=== PATIENT | male | born 1940 | race Caucasian/White ===

== ENCOUNTER 2020-07-18 14:43 | Inpatient (IN) | payer MEDICARE, OTHER ==
[2020-07-18] MEDS ORDERED: oxyCODONE 5 MG Tab **OWN MED PO PRN (21:57)
[2020-07-18] MEDS: TOPIRAMATE 50 MG PO SCH (22:20)
[2020-07-18] MEDS: [UNRECOGNIZED DRUG - OTHER] PO SCH (22:21)
[2020-07-18] MEDS: Docusate Sodium/Sennosides 50-8.6 MG Tab **OWN MED PO SCH (22:21)
[2020-07-18] MEDS: IRON PO SCH (22:21)
[2020-07-18] MEDS: FOLIC ACID PO SCH (22:21)
[2020-07-18] MEDS: LYCOPENE PO SCH (22:21)
[2020-07-18] MEDS: ACETAMINOPHEN 325 MG PO PRN (22:22)
[2020-07-18] MEDS: Timolol Maleate 0.5% Ophth Soln 5 ML Bottle **OWN MED EYEBOTH SCH (22:23)
[2020-07-19] MEDS: ACETAMINOPHEN 325 MG PO PRN (04:00)
[2020-07-19] MEDS ORDERED: Aspirin 325 MG Tab.EC **OWN MED PO SCH (09:00)
[2020-07-19] MEDS ORDERED: PHENTERMINE HCL 37.5 MG PO SCH (09:00)
[2020-07-19] MEDS: Docusate Sodium/Sennosides 50-8.6 MG Tab **OWN MED PO SCH ×2 (09:44→21:14)
[2020-07-19] MEDS: PHENTERMINE HCL 37.5 MG PO SCH (09:44)
[2020-07-19] MEDS: FOLIC ACID PO SCH ×2 (09:45→21:15)
[2020-07-19] MEDS: IRON PO SCH ×2 (09:45→21:15)
[2020-07-19] MEDS: [UNRECOGNIZED DRUG - OTHER] PO SCH ×2 (09:45→21:15)
[2020-07-19] MEDS: LYCOPENE PO SCH ×2 (09:45→21:15)
[2020-07-19] MEDS: HYDROCHLOROTHIAZIDE 12.5 MG PO SCH (09:45)
[2020-07-19] MEDS: Potassium Chloride 10 MEQ Tab.ER **OWN MED PO SCH (09:46)
[2020-07-19] MEDS: ATENOLOL 25 MG PO SCH (09:49)
[2020-07-19] MEDS: Timolol Maleate 0.5% Ophth Soln 5 ML Bottle **OWN MED EYEBOTH SCH ×2 (09:50→21:15)
[2020-07-19] MEDS: MAGNESIUM PO SCH (09:52)
[2020-07-19] MEDS: ZINC PO SCH (09:52)
[2020-07-19] MEDS: CALCIUM PO SCH (09:52)
[2020-07-19] MEDS: PRESERVISION AREDS PO SCH ×2 (10:30→21:14)
--- NOTE | 2020-07-19 12:24 | HP ---
HISTORY OF PRESENT ILLNESS: Mr. Diaz is a 80-year-old male patient who was admitted to private-pay swing bed last evening at approximately 7 p.m. He was discharged from [facility] post right shoulder surgical repair, partial thickness rotator cuff on the right side. 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 His postoperative course was insignificant for complication. His vital signs were stable. On discharge, his hemoglobin is 11.6, GFR 72, and potassium of 4.3. His postoperative pain was managed with oral pain medications, oxycodone, and tramadol. He was tolerating a regular diet without nausea or vomiting. Voiding without difficulty. Passing flatus. He had no chest discomfort, shortness of breath, nausea, headache, numbness, or tingling of his extremities. Today, the patient relates the pain is managed relatively well. On a scale of 0- 10 this morning, he describes his pain as a 4. His dressing remains intact post surgery. His arm immobilizer is intact. He has no complaints of numbness or tingling of the right hand digits at present. The patient reports his night was good in the sense that he was able to rest quite comfortably. PAST SURGICAL HISTORY: Cataract surgery of both eyes. MEDICATIONS: As follows: 1. Tylenol 325 mg 2 tablets oral every 6 hours as needed for mild pain. Not to exceed more than 4000 mg per 24 hours. 2. Aspirin 325 mg daily p.o. (This was discontinued today and he was started on an Anacin daily.). 3. Oxycodone 5 mg ,5-10 mg dosing p.o. 1-2 tablets by mouth every 4 hours as needed for aqdqksix-ry-hziefa pain. 4. Senokot 1 tablet p.o. b.i.d. 5. Atenolol 12.5 mg daily. 6. Calcium/magnesium/zinc 1 tablet daily. 7. Hydrochlorothiazide 12.5 one tablet daily. 8. Multivitamin 1 b.i.d. 9. Phentermine 37.5 mg 1 tablet daily. 10.Potassium chloride 10 mEq 1 tablet daily. 11.Timoptic 1 drop to both eyes b.i.d. 12.Topamax 50 mg 2 tablets by mouth at night. 13.Tramadol 50 mg 1 p.o. q.6 hours p.r.n. for zrqfesha-yc-mewwmr pain which may be alternated with the oxycodone. 14.PreserVision which will be initiated today in swing bed b.i.d. ALLERGIES: Include penicillin and aspirin (the patient states aspirin causes a stiff neck, but he is able to tolerate taking Anacin on a daily basis). PAST MEDICAL HISTORY/PROBLEM LIST: 1. Status post right shoulder arthroplasty. 2. Hypertension. 3. Hypokalemia, which is stable. 4. GERD. 5. Glaucoma. 6. Obesity. SOCIAL/PERSONAL HISTORY: The patient is single. He is a previous smoker. He stopped smoking in 1968. He does use alcohol minimally, approximately 2 drinks weekly. FAMILY HISTORY: Pancreatic cancer in his mother and breast cancer in a cousin. REVIEW OF SYSTEMS: CONSTITUTIONAL: He is well nourished. He is in no distress at present. HEENT: The patient complains of no headache, no visual changes. No nasal drainage. No sore throat. RESPIRATORY: He denies any cough, shortness of breath or congestion. CARDIOVASCULAR: He has no complaints of chest discomfort or palpitations. MUSCULOSKELETAL: He does report a pain level of 4 on a 0-10 pain scale. He denies any numbness or tingling of the upper extremities. He states that he has no difficulty with motion or movement in his right hand digits. SKIN: He offers of no rashes, sores, or moles. PHYSICAL EXAMINATION: VITAL SIGNS: 123/62, heart rate 66, respirations are 18 and temp is 97. HEENT: Head is normocephalic. Conjunctiva is clear. There is no nasal discharge. RESPIRATORY: Lung sounds are clear to auscultation without wheezing, rales, or rhonchi. CARDIOVASCULAR: Heart rate and rhythm are regular, S1, S2. MUSCULOSKELETAL: Right shoulder is slightly tender to light touch. Dressing is intact to the surgical site. There is no extenuating bruising or redness/swelling to observation. Capillary refill of digits is 1-2 seconds. Mobility of the digits of the right hand intact. SKIN: Warm and dry to touch. ASSESSMENT: Status post right shoulder arthroplasty, hypertension, stable hypokalemia, gastroesophageal reflux disease, glaucoma, obesity. PLAN: The patient is admitted to private-pay swing bed. He will be continued on his post hospitalization medications as ordered. He will be placed on a regular diet. Dressing changes will be every 7 days as post hospital discharge instruction. He will be following up for a PT evaluation and treatment. He will be followed up routinely in the swing bed setting and by ortho as directed. /[id number]/MODL MTDD
[2020-07-19] MEDS ORDERED: traMADol 50 MG Tab **OWN MED PO PRN (12:32)
[2020-07-19] MEDS: TOPIRAMATE 50 MG PO SCH (21:14)
[2020-07-20] MEDS: ACETAMINOPHEN 325 MG PO PRN ×2 (06:01→16:30)
[2020-07-20] MEDS: MAGNESIUM PO SCH (08:31)
[2020-07-20] MEDS: LYCOPENE PO SCH ×2 (08:31→20:10)
[2020-07-20] MEDS: [UNRECOGNIZED DRUG - OTHER] PO SCH ×2 (08:31→20:10)
[2020-07-20] MEDS: IRON PO SCH ×2 (08:31→20:10)
[2020-07-20] MEDS: ZINC PO SCH (08:31)
[2020-07-20] MEDS: FOLIC ACID PO SCH ×2 (08:31→20:10)
[2020-07-20] MEDS: CALCIUM PO SCH (08:31)
[2020-07-20] MEDS: HYDROCHLOROTHIAZIDE 12.5 MG PO SCH (08:32)
[2020-07-20] MEDS: Potassium Chloride 10 MEQ Tab.ER **OWN MED PO SCH (08:33)
[2020-07-20] MEDS: PHENTERMINE HCL 37.5 MG PO SCH (08:34)
[2020-07-20] MEDS: PRESERVISION AREDS PO SCH ×2 (08:34→20:11)
[2020-07-20] MEDS: ATENOLOL 25 MG PO SCH (08:35)
[2020-07-20] MEDS: Docusate Sodium/Sennosides 50-8.6 MG Tab **OWN MED PO SCH ×2 (08:35→20:11)
[2020-07-20] MEDS: Timolol Maleate 0.5% Ophth Soln 5 ML Bottle **OWN MED EYEBOTH SCH ×2 (08:50→20:12)
[2020-07-20] MEDS: ANACIN PO SCH (20:10)
[2020-07-20] MEDS: TOPIRAMATE 50 MG PO SCH (20:12)
[2020-07-21] MEDS: ACETAMINOPHEN 325 MG PO PRN (04:13)
[2020-07-21 06:13] VITALS: BP 140/67; PULSE 66
[2020-07-21] MEDS: CALCIUM PO SCH (08:45)
[2020-07-21] MEDS: FOLIC ACID PO SCH ×2 (08:45→20:08)
[2020-07-21] MEDS: [UNRECOGNIZED DRUG - OTHER] PO SCH ×2 (08:45→20:08)
[2020-07-21] MEDS: IRON PO SCH ×2 (08:45→20:08)
[2020-07-21] MEDS: PRESERVISION AREDS PO SCH ×2 (08:45→20:08)
[2020-07-21] MEDS: ZINC PO SCH (08:45)
[2020-07-21] MEDS: Timolol Maleate 0.5% Ophth Soln 5 ML Bottle **OWN MED EYEBOTH SCH ×2 (08:45→20:10)
[2020-07-21] MEDS: MAGNESIUM PO SCH (08:45)
[2020-07-21] MEDS: LYCOPENE PO SCH ×2 (08:45→20:08)
[2020-07-21] MEDS: PHENTERMINE HCL 37.5 MG PO SCH (08:46)
[2020-07-21] MEDS: Docusate Sodium/Sennosides 50-8.6 MG Tab **OWN MED PO SCH ×2 (08:46→20:08)
[2020-07-21] MEDS: ATENOLOL 25 MG PO SCH (08:47)
[2020-07-21] MEDS: Potassium Chloride 10 MEQ Tab.ER **OWN MED PO SCH (08:48)
[2020-07-21] MEDS: ANACIN PO SCH (08:48)
[2020-07-21] MEDS: HYDROCHLOROTHIAZIDE 12.5 MG PO SCH (08:49)
[2020-07-21] MEDS: TOPIRAMATE 50 MG PO SCH (20:08)
[2020-07-22] MEDS: ACETAMINOPHEN 325 MG PO PRN (08:04)
[2020-07-22] MEDS: [UNRECOGNIZED DRUG - OTHER] PO SCH (08:05)
[2020-07-22] MEDS: IRON PO SCH (08:05)
[2020-07-22] MEDS: FOLIC ACID PO SCH (08:05)
[2020-07-22] MEDS: LYCOPENE PO SCH (08:05)
[2020-07-22] MEDS: CALCIUM PO SCH (08:05)
[2020-07-22] MEDS: ZINC PO SCH (08:05)
[2020-07-22] MEDS: MAGNESIUM PO SCH (08:05)
[2020-07-22] MEDS: HYDROCHLOROTHIAZIDE 12.5 MG PO SCH (08:06)
[2020-07-22] MEDS: Potassium Chloride 10 MEQ Tab.ER **OWN MED PO SCH (08:06)
[2020-07-22] MEDS: PRESERVISION AREDS PO SCH (08:07)
[2020-07-22] MEDS: ANACIN PO SCH (08:07)
[2020-07-22] MEDS: PHENTERMINE HCL 37.5 MG PO SCH (08:07)
[2020-07-22] MEDS: Docusate Sodium/Sennosides 50-8.6 MG Tab **OWN MED PO SCH (08:08)
[2020-07-22] MEDS: ATENOLOL 25 MG PO SCH (08:08)
[2020-07-22] MEDS: Timolol Maleate 0.5% Ophth Soln 5 ML Bottle **OWN MED EYEBOTH SCH (08:09)
--- NOTE | 2020-07-22 09:46 | PCM.DCSUM1 ---
Discharge Summary - Hospital Course Diagnosis: Stroke: No - Discharge Data Discharge Date: 07/22/20 Discharge Disposition: Home, W Home Health Agency Condition: Good - Referral to Home Health Date of Face to Face Encounter: 07/22/20 Reason for Homebound Status: This is an order and [id number] encounter for home health services as the patient will need physical therapy and nursing therapy. Patient was admitted to the hospital following right shoulder arthroscopy and has some difficulty with walking and caring for himself due to his right arm being in a stabilizer. Please develop an in-home therapy program to address his strength and endurance and his pain management as he was taken off oxycodone and placed on Tylenol for pain. Please addressed and monitor and assess his unsteady gait due to recent joint surgery, morbid obesity and for the fact that he is has his right arm immobilized. Assess the wound of his right shoulder to address risks of infection due to his right shoulder surgery. Need monitoring of his medications to ensure he is on his aspirin therapy 30 days postoperatively. Patient is homebound and is not to drive due to recent surgery and being immobilized. Patient will be followed by [facility] nurse practitioner Wan next week will sign home health orders as needed. Primary Care Physician: Emmy Herzog PA-C Skilled Need: Physical therapy and nursing - Patient Summary/Data Consults: Consultations 07/18/20 14:49 PT Evaluation and Treatment [CONS] Routine - Patient Instructions Diet: Usual Diet as Tolerated Activity: No Strenuous Activities Driving: Do Not Drive Wound/Incision Care: Keep Operative Site/Wound Site Clean and Dry Notify Provider of: Fever, Increased Pain, Swelling and Redness, Drainage, Nausea and/or Vomiting Other/Special Instructions: Anacin daily for 30 days for dvt prophylaxis. Monitor for signs and symptoms of infection including Temperature greater than 100.4. Any increase in redness, drainage, or foul odor from incision. Increased in pain or numbness and tingling. . Patient to seek emergency care if any chest pain or shortness of breath. . Discussed constipation regimen of Miralax and Senokot. - Discharge Plan *PRESCRIPTION DRUG MONITORING PROGRAM REVIEWED*: Yes (in epic) *COPY OF PRESCRIPTION DRUG MONITORING REPORT IN PATIENT JESSICA: Not Applicable Home Medications: Home Meds Multivitamin with Minerals [Multiple Vitamin] 1 tab PO BID 05/19/15 [History] Potassium Chloride 10 meq PO DAILY 05/19/15 [History] Timolol Maleate [Timoptic 0.5% Ophth Soln] 1 drop EYEBOTH BID 05/19/15 [History] hydroCHLOROthiazide [Hydrochlorothiazide] 12.5 mg PO DAILY 05/19/15 [History] Phentermine HCl [Adipex-P] 37.5 mg PO DAILY 12/17/19 [History] atenoloL [Tenormin] 12.5 mg PO DAILY 12/17/19 [History] Acetaminophen [Tylenol] 650 mg PO Q6H PRN 07/18/20 [History] Calcium/Magnesium/Zinc [Kohcnlr-Fmckqiquj-Tlhv Tablet] 1 tab PO DAILY 07/18/20 [History] Phentermine HCl [Adipex-P] 37.5 mg PO DAILY 07/18/20 [History] Sennosides/Docusate Sodium [Senna-Docusate Sodium Tablet] 1 tab PO BID 07/18/20 [History] Topiramate [Topamax] 50 mg PO BEDTIME 07/18/20 [History] Aspirin/Caffeine [Anacin 400-32 mg Tablet] 1 - 2 tab PO DAILY PRN 07/20/20 [History] Referrals: [facility] [Outside] [facility] Stinson, AGENT [Nurse Practitioner] - (early next week) - Discharge Summary/Plan Comment DC Time >30 min.: Yes Discharge Summary/Plan Comment: Final diagnosis Status post right total shoulder arthroplasty Hypertension Hypokalemiastable GERD Glaucoma Obesity History summary Patient is status post right shoulder arthroscopy formed by Dr. Kincaid orthopedic surgeon [facility] and was admitted into swing bed therapy for physical therapy. Done well throughout his short swing bed stay. His pain was controlled with Tylenol, he had bowel movements, no fever, no drainage from operative site. His right arm remained in an immobilizer. He had no complaints of numbness or tingling in his right upper extremity. Medication changes/adjustments upon discharge Discontinue oxycodone Disposition Patient will be discharge from swing bed therapy [facility] today with home health [facility] and physical therapy. This is an order and [id number] encounter for home health services as the patient will need physical therapy and nursing therapy. Patient was admitted to the hospital following right shoulder arthroscopy and has some difficulty with walking and caring for himself due to his right arm being in a stabilizer. Please develop an in-home therapy program to address his strength and endurance and his pain management as he was taken off oxycodone and placed on Tylenol for pain. Please addressed and monitor and assess his unsteady gait due to recent joint surgery, morbid obesity and for the fact that he is has his right arm immobilized. Assess the wound of his right shoulder to address risks of infection due to his right shoulder surgery. Need monitoring of his medications to ensure he is on his aspirin therapy 30 days postoperatively. Patient is homebound and is not to drive due to recent surgery and being immobilized. Patient will be followed by [facility] nurse practitioner Wan next week will sign home health orders as needed. - General Info Functional Status: Reports: Pain Controlled, Tolerating Diet, Ambulating, Urinating. Denies: New Symptoms, Incentive Spirometry - Review of Systems General: Reports: No Symptoms HEENT: Reports: No Symptoms Pulmonary: Reports: No Symptoms Cardiovascular: Reports: No Symptoms Gastrointestinal: Reports: No Symptoms Genitourinary: Reports: No Symptoms Musculoskeletal: Reports: Shoulder Pain (Very mild right shoulder pain) Skin: Reports: Other (Wound dehiscence right shoulder, dressing clean dry and i ntact). Denies: Rash Neurological: Reports: No Symptoms Psychiatric: Reports: No Symptoms - Patient Data Vitals - Most Recent: Last Vital Signs Temp 98.5 F 07/21/20 06:13 Pulse 66 07/22/20 08:08 Resp 20 07/21/20 06:13 BP 140/67 07/22/20 08:08 Pulse Ox 99 07/21/20 06:13 Weight - Most Recent: 253 lb 1.6 oz I&O - Last 24 hours: Intake & Output 07/21/20 07/22/20 07/22/20 22:59 06:59 14:59 Intake Total 1440 200 Balance 1440 200 Med Orders - Current: Current Medications Acetaminophen (Tylenol) 650 mg PO Q6H PRN PRN Reason: Pain Last Admin: 07/22/20 08:04 Dose: 650 mg Documented by: Atenolol (Tenormin) 12.5 mg PO DAILY [facility] Last Admin: 07/22/20 08:08 Dose: 12.5 mg Documented by: Hydrochlorothiazide (Hydrochlorothiazide) 12.5 mg PO DAILY [facility] Last Admin: 07/22/20 08:06 Dose: 12.5 mg Documented by: Multivitamins/Minerals (Centrum) 1 tab PO BID [facility] Last Admin: 07/22/20 08:05 Dose: 1 tab Documented by: Calcium/Magnesium/Zinc 1 Tablet Own Med 1 tab PO DAILY [facility] Last Admin: 07/22/20 08:05 Dose: 1 tab Documented by: Phentermine Hcl [ Adipex-P] 37.5 Mg Own Med 37.5 mg PO DAILY [facility] Last Admin: 07/22/20 08:07 Dose: 37.5 mg Documented by: Topiramate [Topamax] (50 Mg Own Med) 50 mg PO BEDTIME [facility] Last Admin: 07/21/20 20:08 Dose: 50 mg Documented by: Oxycodone HCl (Oxycodone) 5 - 10 mg PO Q4H PRN PRN Reason: Pain (moderate 4-6) Last Admin: 07/19/20 09:49 Dose: 5 mg Documented by: Anacin Tab Own Med () 1 each PO DAILY [facility] Last Admin: 07/22/20 08:07 Dose: 1 each Documented by: Preservision Areds 2 (Own Med) 1 each PO BID [facility] Last Admin: 07/22/20 08:07 Dose: 1 each Documented by: Potassium Chloride (Klor-Con 10) 10 meq PO DAILY [facility] Last Admin: 07/22/20 08:06 Dose: 10 meq Documented by: Senna/Docusate Sodium (Senna Plus) 1 tab PO BID [facility] Last Admin: 07/22/20 08:08 Dose: 1 tab Documented by: Timolol Maleate (Timoptic 0.5% Ophth Soln) 0 ml EYEBOTH BID [facility] Last Admin: 07/22/20 08:09 Dose: 1 drop Documented by: Tramadol HCl (Ultram) 50 mg PO Q6H PRN PRN Reason: Pain Last Admin: 07/19/20 18:20 Dose: 50 mg Documented by: Discontinued Medications Aspirin (Ecotrin) 325 mg PO DAILY [facility] Last Admin: 07/19/20 09:46 Dose: Not Given Documented by: Non-Formulary Medication (Phentermine Hcl [Adipex-P]) 37.5 mg PO DAILY [facility] - Exam Quality Assessment: Reports: DVT Prophylaxis (Anacin) General: Reports: Alert, Oriented Neck: Reports: Supple Lungs: Reports: Clear to Auscultation, Normal Respiratory Effort Cardiovascular: Reports: Regular Rate, Regular Rhythm Skin: Reports: Other (Some mild bruising right shoulder) Wound/Incisions: Reports: Dressing Dry and Intact, No Drainage. Denies: Erythema Psy/Mental Status: Reports: Alert
== END 2020-07-22 11:20 | disposition home health service (06) | DRG 561 ==
LOC: KA.MS 18:36
PROVIDERS: ADMIT Physician Assistant Medical; ATTEND Physician Assistant Medical
DX: Z47.1 Aftercare following joint replacement surgery (principal); Z96.611 Presence of right artificial shoulder joint; I10 Essential (primary) hypertension; E87.6 Hypokalemia; K21.9 Gastro-esophageal reflux disease without esophagitis; E66.01 Morbid (severe) obesity due to excess calories; Z88.0 Allergy status to penicillin; Z98.41 Cataract extraction status, right eye; Z98.42 Cataract extraction status, left eye; Z79.899 Other long term (current) drug therapy; Z88.6 Allergy status to analgesic agent; Z79.82 Long term (current) use of aspirin; Z87.891 Personal history of nicotine dependence
CPT/HCPCS: 97110-GP; 97161-GP; A9270-GY

== ENCOUNTER 2023-04-26 11:10 | Emergency (ER) | payer MEDICARE, OTHER ==
[2023-04-26] MEDS ORDERED: Sodium Chloride 0.9% 1,000 ML IV ONE (11:21)
[2023-04-26] MEDS ORDERED: Sodium Chloride 0.9% 10 ML Syringe FLUSH PRN (11:21)
[2023-04-26 11:26] LABS: BASOPHILS ABSOLUTE AUTO 0.01 10^3/uL (0.00-0.10); BASOPHILS PERCENT AUTO 0.1 % (0.0-1.0); EOSINOPHILS ABSOLUTE AUTO 0.23 10^3/uL (0.10-0.30); EOSINOPHILS PERCENT AUTO 2.8 % (1.0-3.0); HEMATOCRIT 41.1 % (40.0-52.0); IMMATURE GRAN ABSOLUTE AUTO 0.03 10^3/uL (0.00-0.50); IMMATURE GRAN PERCENT AUTO 0.4 % (0.0-5.0); LYMPHOCYTES ABSOLUTE AUTO 2.14 10^3/uL (1.00-4.00); LYMPHOCYTES PERCENT AUTO 26.1 % (20.0-40.0); MEAN CORPUSCULAR HEMOGLOBIN 28.4 pg (27.0-31.0); MEAN CORPUSCULAR HGB CONC 31.6 g/dL (32.0-36.0); MEAN CORPUSCULAR VOLUME 89.7 fL (82.0-92.0); MEAN PLATELET VOLUME 9.6 fL (7.4-10.4); MONOCYTES ABSOLUTE AUTO 0.78 10^3/uL (0.10-0.80); MONOCYTES PERCENT AUTO 9.5 % (2.0-8.0); NEUTROPHILS ABSOLUTE AUTO 5.02 10^3/uL (2.50-7.00); NEUTROPHILS PERCENT AUTO 61.1 % (50.0-70.0); PLATELET COUNT,PLT 247 10^3/uL (150-400); RED BLOOD CELL COUNT 4.58 10^6/uL (4.50-6.00); RED CELL DISTRIBUTION WIDTH 13.4 % (11.5-14.5); WHITE BLOOD CELL COUNT,WBC 8.21 10^3/uL (5.00-10.00)
[2023-04-26 11:38] LABS: ALBUMIN 2.97 g/dL (3.40-5.00); ANION GAP 11.1 mmol/L (5-15); BILIRUBIN TOTAL 0.4 mg/dL (0.2-1.0); CALCIUM 8.4 mg/dL (8.7-10.3); CARBON DIOXIDE,CO2 27.5 mmol/L (21.0-32.0); CREATININE 1.31 mg/dL (0.51-1.17); EST CRCL DRUG DOSING (CG) 48.54 mL/min; POTASSIUM,K 4.6 mmol/L (3.5-5.1); PROTEIN TOTAL,TP 6.9 g/dL (6.4-8.2)
[2023-04-26 13:27] VITALS: PULSE 55
[2023-04-26 13:43] VITALS: BP 142/67
== END 2023-04-26 14:07 ==
LOC: KA.ED 11:10
DX: R42 Dizziness and giddiness (principal); R53.1 Weakness; R00.1 Bradycardia, unspecified; K21.9 Gastro-esophageal reflux disease without esophagitis; E66.9 Obesity, unspecified; Z79.82 Long term (current) use of aspirin; Z88.0 Allergy status to penicillin; Z88.8 Allergy status to other drugs, medicaments and biological substances; Z68.37 Body mass index [BMI] 37.0-37.9, adult
CPT/HCPCS: 80053; 85025; 93005; 99285; J7030